=== PATIENT | female | born 1980 ===

== ENCOUNTER 2018-06-13 08:15 | Inpatient (IN) | payer OTHER ==
[~2018-06-13] VITALS: Ht 157.5 cm; Wt 2.7 kg
== END 2018-06-23 11:11 | disposition home or self-care (01) | DRG 788 ==
LOC: O/R 06-20 05:29 → SURG-SUITE 06-20 05:29 → LDR 06-20 08:15 → SURG-SUITE 06-20 09:48 → LDR 06-20 14:45 → SURG-SUITE 06-23 11:11
PROVIDERS: Obstetrics & Gynecology
PROC: 4A033R1 Measurement of Arterial Saturation, Peripheral, Percutaneous Approach (ICD-10-PCS; 2018-06-20)
PROC: 4A1HXCZ Monitoring of Products of Conception, Cardiac Rate, External Approach (ICD-10-PCS; 2018-06-20)
PROC: 10D00Z1 Extraction of Products of Conception, Low, Open Approach (ICD-10-PCS; principal; 2018-06-20 14:45)
DX: O82 Encounter for cesarean delivery without indication (principal); Z3A.39 39 weeks gestation of pregnancy; Z37.0 Single live birth